=== PATIENT | female | born 1995 | race Caucasian/White ===

== ENCOUNTER 2022-10-01 16:42 | Inpatient (IN) | payer BC, SELFPAY ==
[2022-10-01 19:46] VITALS: BMI 29.9
[2022-10-01] MEDS: Lactated Ringers 1,000 ML 50 ML IV (20:05)
[2022-10-01 20:13] LABS: Absolute Lymphocyte Count 2.04 X10^3/uL (0.83-4.51); Absolute Neutrophil Count 9.3 X10^3/uL (2.0-7.7); Basophil# 0.05 X10^3/uL; Basophil% 0.4 % (0-1); Eosinophil# 0.27 X10^3/uL; Eosinophils% 2.2 % (0-5); Hematocrit 36.8 % (37-47); Hemoglobin 12.7 g/dL (12.0-15.0); Lymphocyte # 2.04 X10^3/ul (0.83-4.51); Lymphocyte % 16.3 % (19-41); Mean Corp Hgb Conc 34.5 g/dL (32-36); Mean Corpuscular Hgb 30.1 pg (27.0-32.0); Mean Corpuscular Volume 87.2 fL (81-99); Mean Platelet Vol. 10.8 fl (6.2-12.0); Monocyte# 0.72 X10^3/uL; Monocyte% 5.8 % (0-10); NRBC Flagged by Analyzer 0 % (0-5); Neutrophil # 9.29 X10^3/uL (2.7-7.7); Neutrophil % 74.3 % (47-70); Platelet Count 200 K/mm3 (150-450); RBC Distribution Width CV 12.7 % (11.6-14.6); RBC Distribution Width SD 39.8 fl (35.1-43.9); Red Blood Count 4.22 M/mm3 (4.2-5.4); White Blood Count 12.5 K/mm3 (4.4-11.0)
[2022-10-01 20:16] VITALS: BP 136/95; PULSE 94; PULSE 98; TEMP 37.7; O2SAT 97
[2022-10-01 21:06] LABS: AST(SGOT) 30 U/L (15-37); Alanine Aminotransfer ALT/SGPT 30 U/L (13-56); EST Glomerular Filtration Rate 90 mL/min (>60); Est Glom Filt Rate - Afr Amer 108 mL/min (>60); Estimated Creatinine Clearance 97.13 ml/min; Uric Acid 3.8 mg/dL (2.6-6.0)
[2022-10-01] MEDS: 0.9% Normal Saline Single 100 ML IV.SOLN. INTRA-UTER (21:25)
[2022-10-01] MEDS: NIFEdipine 30 MG Tablet PO (21:31)
--- NOTE | 2022-10-01 21:38 | PCM.HP.OB ---
HPI - General General Date of Admission: 10/01/22 Date of Service: 10/01/22 Chief Complaint: IOL HPI Narrative AMPARO CASTRO, is a 27 F at 39w0d who presents for scheduled IOL for cHTN. On Procardia at home for cHTN. She denies NASSAR, vision changes, upper abd pain, vb, lof. Good FM. She offers no complaints at this time. PFSH PFSH Medical History (Updated 10/01/22 @ 21:[address] Valentina Gutierrez, DO) Chronic hypertension Gestational HTN Home Medications aspirin 81 mg PO.IVFORM DAILY Check with primary doctor 10/01/22 [History Last Taken 09/30/22] nifedipine 30 mg tablet,extended release 24 hr 30 mg PO 1XD Check with primary doctor 10/01/22 [History Last Taken 09/30/22 22:00] vitamin with calcium no.72-iron 27 mg-folic acid 1 mg tablet ( Vitamins Plus Low Iron) tab Check with primary doctor 10/01/22 [History Last Taken Unknown] Allergy/AdvReac Type Severity Reaction Status Date / Time No Known Allergies Allergy Verified 10/01/22 20:31 Family History (Updated 10/01/22 @ 20:02 by Dayana Millard) Grandmother Breast cancer Father Hearing loss Social History Smoking Status: Never smoker History Elective abortions Hx Para 0 Spontaneous abortions Hx # Term Pregnancies Ectopic pregnancies Hx # Pregnancies Multiple births # of living children NST FHR Rate Baby A Baseline: 150 Variability:: Moderate Accelerations:: 15 x 15 Decelerations:: None NST Reactive:: Yes FHR Category:: Category I Uterine Activity:: No regular ctx's Vital Signs Vital Signs Vital Signs: 10/01/22 20:16 10/01/22 20:16 10/01/22 20:16 Temperature 99.9 F H Pulse Rate 94 Blood Pressure 136/95 H BP Systolic 136 BP Diastolic 95 Pulse Ox 10/01/22 20:16 10/01/22 20:16 10/01/22 20:16 Temperature 99.8 F H Pulse Rate 98 Blood Pressure BP Systolic BP Diastolic Pulse Ox 97 Weight Weight: 185 lb 3.013 oz Body Mass Index (BMI) 29.9 Physical Exam Const alert and no apparent distress General Appearance: comfortable HEENT normocephalic Resp normal respiratory effort GI soft to palpation and non-tender GI Narrative: Gravid Narrative: 1/t/h, posterior Extremity normal to inspection Labs Labs Labs: Blood Type Pending Antibody Screen Pending Hct 36.8 % (37-47) L Hgb 12.7 g/dL (12.0-15.0) Assessment & Plan (1) 39 weeks gestation of : PLAN: Admit for routine intrapartum care. Cvx 1/t/h, posterior. Intracervical delcid placed in usual fashion and filled with 40 cc saline. Cytotec 25 mcg given. Once delcid out will start pit and PCN for GBS+. Plans for epidural for pain control. Bedside TAUS confirm vertex presentation. Cont Procardia. Pre e labs sent on admission. No symptoms of pre e. Pelvis adequate and expected EFW < 4500 g. Anticipate vaginal delivery. (2) Encounter for planned induction of labor: (3) Chronic hypertension:
[2022-10-01] MEDS: miSOPROStol 25 MCG TABLET PO (22:04)
[2022-10-01 22:12] LABS: Protein, Urine (Random) 6.9 mg/dL (<11.9); Protein:Creat Ratio 107 mg/g CRE (0-200)
[2022-10-01 22:59] VITALS: BP 142/87; PULSE 80; TEMP 36.9
[2022-10-02] VITALS (63 sets, daily range): BP systolic 106–149; BP diastolic 64–107; PULSE 75–136; TEMP 36.2–38.1; O2SAT 95–100
[2022-10-02] MEDS: Oxytocin 15 Units/NS 250ml 15 UNITS/250 ML IV.SOLN 2 UNITS IV (02:10)
--- NOTE | 2022-10-02 05:21 | PCM.PN.BLA ---
Progress Note At bedside to check on pt. She is doing well. Getting some rest with ctx's. Assessment & Plan Assessment/Plan (1) 39 weeks gestation of : PLAN: Per RN after delcid was out cvx 350/-3, posterior. At bedside to recheck and cvx posterior - unable to check cvx given posterior position and pt discomfort with exam. Unable to perform AROM at this time given position of cervix. Cont pit gtt. Category 1 tracing. (2) Encounter for planned induction of labor: (3) Chronic hypertension:
[2022-10-02] MEDS: Lactated Ringers 1,000 ML 200 ML IV ×3 (06:00→18:59)
[2022-10-02] MEDS: LACTATED RINGERS 500 ML 999 ML IV ×2 (06:02→16:05)
[2022-10-02] MEDS: Penicillin G 3,000,000 Units 50 ML 100 UNITS IV ×2 (06:30→19:40)
[2022-10-02] MEDS: fentaNYL-bupivacaine (epidural) 100 ML BAG EPIDURAL ×4 (07:37→21:10)
--- NOTE | 2022-10-02 08:20 | PCM.PN.BLA ---
Progress Note Patient seen at bedside. Comfortable with epidural. Assessment & Plan Assessment/Plan (1) Chronic hypertension: (2) Encounter for planned induction of labor: (3) 39 weeks gestation of : PLAN: Plan Cat. 1 tracing, NST reactive GBS +, PCN IV x 3 doses CE- 3/50/-3 AROM for moderate amount of clear fluid IUPC placed without difficulty Continue present plan of care Anticipate Dr. Jiang updated and is collaborating physician
[2022-10-02] MEDS: Penicillin G 3,000,000 Units 50 ML 50 UNITS IV ×2 (10:35→14:32)
--- NOTE | 2022-10-02 16:44 | PCM.PN.BLA ---
Progress Note Patient seen at bedside. Remains comfortable with epidural. Denies any pain. Assessment & Plan Assessment/Plan (1) Chronic hypertension: (2) Encounter for planned induction of labor: (3) 39 weeks gestation of : PLAN: Plan Cat 2 tracing with occasional late, and early decelerations. Moderate variability- overall reassuring CE- 5/85/-1- cervix thinner and more stretchy Blood pressures within normal ranges Continue present plan of care Anticipate Dr. Apolinar park
[2022-10-02] MEDS: Ondansetron 4 MG/2 ML Vial IV (20:13)
[2022-10-02] MEDS: Oxytocin 10 UNITS/ML Vial IM (21:46)
--- NOTE | 2022-10-02 22:04 | EX.PCM.OBRPT ---
Assessment & Plan (1) Chronic hypertension: (2) (spontaneous vaginal delivery): Vaginal Delivery Maternal Presentation Maternal Presentation: Medically Indicated Induction Type of Induction: Pitocin, Reym Bulb and Amniotomy Medical Reason for Induction: - (Chronic Hypertension) Operative Information Date of Procedure: 10/02/22 Pre-Operative Diagnosis: Term gestation, Chronic hypertension, induction of labor Post-Operative Diagnosis: , live viable male Surgery / Procedure Performed: Spontaneous Vaginal Delivery Type of Anesthesia: Epidural Drain: Remy to straight drain Estimated Blood Loss: 300 Time of Delivery: 21:39 Findings Description of Procedure: Provided bedside support to patient during pushing. head delivered in MORA position with hand next to face. Anterior shoulder delivered followed by remainder of infant body with no traction. Vigorous male placed on maternal abdomen and attended to by nursing staff. Pitocin IM x 1 dose given for active management of the third stage. 3 vessel cord clamped and cut by patient after delay, and placed immediately skin to skin. Cord blood collected and sent. Placenta delivered spontaneously and intact. Vagina and perineum intact. Bilateral labial lacerations not actively bleeding and not repaired. Hemostasis obtained. Fundus firm and 2 below U. EBL 300 cc . APGARS 9/9. Infant and patient bonding well at this time. Planning on bottle feeding. Dr. Jiang notified of delivery. Presentation: Vertex (Hand next to face) Amniotic Membrane Rupture Type: Artificial Time of Membrane Rupture: 811 Amniotic Fluid Description: Clear Placental Delivery Description: Spontaneous Placenta Disposition: [facility] Cord Vessel Description: 3 Vessels Cord Entanglement: None A Gender: Male (1 minute): 9 (5 minute): 9 Delayed Cord Clamping: Yes
[2022-10-02] MEDS: 0.9% Saline Lock 10 ML Syringe IV (23:52)
[2022-10-02] MEDS: NIFEdipine 30 MG Tablet PO (23:54)
[2022-10-03] VITALS (7 sets, daily range): BP systolic 119–141; BP diastolic 71–88; PULSE 80–99; RESP 16–18; TEMP 36.4–37.4; O2SAT 96
[2022-10-03] MEDS: Naproxen 500 MG Tablet PO (04:48)
--- NOTE | 2022-10-03 11:18 | PCM.PN.OB ---
Subjective Subjective Patient seen at bedside. Feeling good. Denies any pain. Ambulating and voiding without difficulty. Bottle feeding. Denies any headache, vision changes, SOB or CP. Objective Data Objective Data Vital Signs: Vital Signs Temp Pulse Resp BP Pulse Ox O2 Del Method 98.0 F 90 18 127/71 H 96 Room Air 10/03/22 07:42 10/03/22 07:42 10/03/22 07:42 10/03/22 07:42 10/03/22 07:42 10/03/22 07:42 Oxygen Delivery Method Room Air Weight: 185 lb 3.013 oz Body Mass Index (BMI) 29.9 Intake & Output: Intake and Output for Last 24 Hours 10/01/22 10/02/22 10/03/22 23:59 23:59 23:59 Intake Total 6098.40 / 6098.40 Output Total 2800 / 2800 1500 / 1500 Balance 3298.40 / 3298.40 -1500 / -1500 Lab / Micro Data Result Diagrams: 10/01/22 20:05 10/01/22 20:05 ROS Eyes Eyes: Denies blurry vision, change in vision or spots in vision ENT HEENT: Denies dizziness or headache(s) Cardiovascular Cardiovascular: Denies abdominal pain, chest pain or dyspnea Respiratory/Chest Respiratory/Chest: Denies cough, dyspnea, shortness of breath at rest or shortness of breath with exertion Gastrointestinal Gastrointestinal: Denies abdominal pain, diarrhea or vomiting Genitourinary Genitourinary: Denies change in urinary stream, difficulty urinating or dysuria Musculoskeletal Musculoskeletal: Reports none Integumentary Integumentary: Denies rash Neurologic Neurologic: Denies dizziness, headache(s), memory loss or weakness Physical Exam Const alert and no apparent distress General Appearance: cooperative and comfortable Exam Limitations: no limitations HEENT normocephalic Eyes General Eye: normal appearance of both eyes Neck full ROM General: normal visual inspection Chest Chest: symmetrical chest wall rise Resp normal respiratory effort and normal air movement Effort and Inspection: symmetric chest movement Auscultation: clear to auscultation bilaterally Cardio regular rate and regular rhythm GI normal to inspection, nondistended, normoactive bowel sounds Back/Spine normal ROM Extremity full ROM and no calf tenderness General Extremity: normal exam except as noted Skin no rashes or lesions noted Neuro CN's II-XII intact bilaterally Psych mental status grossly normal Assessment & Plan (1) (spontaneous vaginal delivery): (2) Chronic hypertension: PLAN: Plan PPD 1 Routine care Pain control Continue Procardia XL 30 mg Daily BP within normal range Anticipate discharge home tomorrow
[2022-10-03] MEDS: NIFEdipine 30 MG Tablet PO (22:29)
[2022-10-04 01:30] VITALS: BP 125/88; PULSE 71; RESP 17; TEMP 36.4; O2SAT 97
[2022-10-04 01:49] VITALS: BP 142/91; PULSE 102; RESP 18; TEMP 36.5
--- NOTE | 2022-10-04 01:57 | NURSING ---
Pt called nursing staff into room with c/o i just got really cold all of a sudden Pt resting in bed, wearing a hooded sweat shirt, calabrese up over head. pt with chills. vitals obtained. afebrile at this time. pt denies pain/abd tenderness. warm blankets provided. plan to recheck vitals in 1 hour.
[2022-10-04 03:03] VITALS: BP 129/82; PULSE 91; RESP 16; TEMP 36.9
--- NOTE | 2022-10-04 07:41 | PCM.PN.OB ---
Subjective Subjective Patient seen at bedside. Feeling good. Denies any pain. Ambulating and voiding without difficulty. Denies any headache, vision changes, RUQ pain, CP or SOB. Lochia decreasing. Bottle feeding. Desires discharge home today. Objective Data Objective Data Vital Signs: Vital Signs Temp Pulse Resp BP Pulse Ox O2 Del Method 98.5 F 91 16 129/82 H 97 Room Air 10/04/22 03:03 10/04/22 03:03 10/04/22 03:03 10/04/22 03:03 10/04/22 01:30 10/04/22 01:30 Oxygen Delivery Method Room Air Weight: 185 lb 3.013 oz Body Mass Index (BMI) 29.9 Intake & Output: Intake and Output for Last 24 Hours 10/02/22 10/03/22 10/04/22 23:59 23:59 23:59 Intake Total 6098.40 / 6098.40 Output Total 2800 / 2800 2300 / 2300 Balance 3298.40 / 3298.40 -2300 / -2300 Lab / Micro Data Result Diagrams: 10/01/22 20:05 10/01/22 20:05 ROS Eyes Eyes: Denies blurry vision, change in vision or spots in vision ENT HEENT: Denies dizziness or headache(s) Cardiovascular Cardiovascular: Denies abdominal pain, chest pain or dyspnea Respiratory/Chest Respiratory/Chest: Denies cough, dyspnea, shortness of breath at rest or shortness of breath with exertion Gastrointestinal Gastrointestinal: Denies abdominal pain, diarrhea or vomiting Genitourinary Genitourinary: Denies change in urinary stream, difficulty urinating or dysuria Musculoskeletal Musculoskeletal: Reports none Integumentary Integumentary: Denies rash Neurologic Neurologic: Denies dizziness, headache(s), memory loss or weakness Physical Exam Const alert and no apparent distress General Appearance: cooperative and comfortable Exam Limitations: no limitations HEENT normocephalic Eyes General Eye: normal appearance of both eyes Neck full ROM General: normal visual inspection Chest Chest: symmetrical chest wall rise Resp normal respiratory effort and normal air movement Effort and Inspection: symmetric chest movement Auscultation: clear to auscultation bilaterally Cardio regular rate and regular rhythm GI normal to inspection, nondistended, normoactive bowel sounds Back/Spine normal ROM Extremity full ROM and no calf tenderness General Extremity: normal exam except as noted Skin no rashes or lesions noted Neuro CN's II-XII intact bilaterally Psych mental status grossly normal Assessment & Plan (1) Chronic hypertension: (2) (spontaneous vaginal delivery): PLAN: Plan PPD 1 Routine care Pain control Continue Procardia XL 30 mg PO daily Follow up with [employer] D/C home with follow up in office this week
--- NOTE | 2022-10-04 07:46 | DCINST_ITS ---
Discharge Instructions Diet Discharge Diet: No restrictions Activity Discharge Activity: Return to Normal Activity, May Shower and May Take a Tub Bath May resume sexual activity in: 4-6 weeks Weight Bearing Status: Weight bearing as tolerated Dressing / Incision Call your doctor if you observe: Inability to urinate, Using more than 1 pad per hour, Shortness of breath, Dizziness, Swelling in the ankles, Chest pain, Calf discomfort and Uncontrolled pain Follow Up Care Please Follow Up With: Daniela Ahumada CNM When: Within 2 weeks then again at 6 weeks Test Results: Test results from this visit will be discussed in further detail at your follow- up appointment, if applicable. Discharge Plan Admission Admit Date/Time: 10/01/22 16:42 Primary Reason for Your Visit: Labor and Delivery Attending Provider: Daniela Ahumada Primary Care Provider: Care Physician,Tiffanie Primary Discharge Orders/Prescriptions Prescriptions: Continued nifedipine 30 mg tablet extended release 24hr 30 mg PO 1XD Vitamin Plus Low Iron 27 mg iron- 1 mg tablet Discontinued aspirin 81 mg PO.IVFORM DAILY Referrals / Follow Up: Care Physician,Tiffanie Primary [Primary Care Provider] - Disposition Disposition (needs filled in before D/C Order can be placed): Home, Self Care
[2022-10-04 08:09] VITALS: BP 110/65; BP 110/85; PULSE 91; RESP 18; TEMP 36.4; O2SAT 98
== END 2022-10-04 08:13 | disposition home or self-care (01) | DRG 806 ==
PROVIDERS: Obstetrics & Gynecology; Admitting Provider Advanced Practice Midwife; Visit Provider Advanced Practice Midwife
DX: O76 Abnormality in fetal heart rate and rhythm complicating labor and delivery (principal); Z37.0 Single live birth; O10.02 Pre-existing essential hypertension complicating childbirth; O99.824 Streptococcus B carrier state complicating childbirth; O70.0 First degree perineal laceration during delivery; Z3A.39 39 weeks gestation of pregnancy; Z79.82 Long term (current) use of aspirin; Z79.899 Other long term (current) drug therapy
CPT/HCPCS: 59025; 59050; 82565; 82570; 84156; 84450; 84460; 84550; 85025; 86850; 86900; 86901; 99221; J7120; A4216; G0378; J2405

== ENCOUNTER 2022-12-24 10:03 | Day surgery (SDC) | payer BC, SELFPAY ==
[2022-12-21 10:56] LABS: Hematocrit 43.7 % (37-47); Hemoglobin 14.3 g/dL (12.0-15.0); Mean Corp Hgb Conc 32.7 g/dL (32-36); Mean Corpuscular Hgb 28.7 pg (27.0-32.0); Mean Corpuscular Volume 87.8 fL (81-99); Mean Platelet Vol. 10.7 fl (6.2-12.0); Platelet Count 252 K/mm3 (150-450); RBC Distribution Width CV 11.8 % (11.6-14.6); RBC Distribution Width SD 37.6 fl (35.1-43.9); Red Blood Count 4.98 M/mm3 (4.2-5.4); White Blood Count 5.2 K/mm3 (4.4-11.0)
--- NOTE | 2022-12-22 17:08 | PCM.HP.BLA ---
History and Physical Date of Admission: 12/24/22 Pre-Op History and Physical ? HPI: The patient is a 27 year old female presenting for pre-operative visit. She is scheduled for laparoscopic bilateral salpingectomy , for desires sterilization on . Procedure discussed along with risks, benefits and complications. Other alternatives discussed for management. Consent form signed? Yes. ? ? PAST MEDICAL HISTORY PAST MEDICAL HISTORY Diagnosis Date ? Essential hypertension ? ? fracture 2006 ? right arm-radius and ulna ? Infertility, female ? ? attempted 2 years, infertility work up with [facility] ? ? PAST SURGICAL HISTORY PAST SURGICAL HISTORY Procedure Laterality Date ? PAST SURGICAL HISTORY OF ? ? ? wisdom teeth ? PAST SURGICAL HISTORY OF Right ? ? radius/ulna ? TONSILLECTOMY HX ? CURRENT MEDICATIONS Current Outpatient Medications Medication Sig Dispense Refill ? NIFEdipine ER (PROCARDIA XL) 30 mg 24 hr tablet Take 1 tablet by mouth once daily. 30 tablet 5 ? aspirin 81 mg cap Take by mouth. ? ? ? prental multivitamin 27 mg iron- 800 mcg tablet Take 1 tablet by mouth once daily. 30 tablet 4 ? No current facility-administered medications for this visit. ? ? ALLERGIES: Patient has no known allergies. ? PERSONAL HISTORY: SOCIAL HISTORY Social History ? Tobacco Use ? Smoking status: Never ? Smokeless tobacco: Never Vaping Use ? Vaping Use: Never used Substance Use Topics ? Alcohol use: Not Currently ? Drug use: Never ? FAMILY HISTORY: FAMILY HISTORY FAMILY HISTORY Problem Relation Age of Onset ? Hypertension Mother ? ? Asthma Mother ? ? No Known Problems Father ? ? other (penicillin allergy) Sister ? ? other (other) Brother ? ? Seizures Brother ? ? Alcohol abuse Brother ? ? other (lung issues) Maternal Grandmother ? ? Stroke Maternal Grandfather ? ? No Known Problems Paternal Grandmother ? ? No Known Problems Paternal Grandfather ? ? ? REVIEW OF SYMPTOMS: negative except as noted above PHYSICAL EXAMINATION: ? VITALS: Blood pressure 132/72, weight 159 lb (72.1 kg), last menstrual period 11/29/2022, not currently . ? GENERAL: The patient is well nourished, well hydrated in no acute distress. , The patient is oriented to time, place, and person. NECK: full range of motion LUNGS: Clear to auscultation bilaterally. no wheezes, rhonchi or rales HEART: Regular rate and rhythm, Normal heart sounds, and No murmurs or gallops ? IMPRESSION: 27yo here for sterilization consultation/pre op ? PLAN: laparoscopic bilateral salpingectomy ? Pt has been counseled on risks/benefits and alternatives of surgery including but not limited to anesthesia, bleeding, infection, injury to pelvic structures including bowel, bladder, ureters and vessels. Pt wishes to proceed with surgery at this time. Risk of regret reviewed ? Pre op and post op instructions reviewed ? ? I have reviewed and updated past medical and surgical history, medications and allergies Katarina Mariee MD Office Visit on 12/10/2022 Office Visit on 12/10/2022 Note viewed by patient
[2022-12-24 10:30] VITALS: BP 129/92; PULSE 71; RESP 16; TEMP 36.6; O2SAT 100; BMI 25.9
[2022-12-24 10:41] LABS: Internal QC Validated? YES +Cl - CLEAR BKGD
[2022-12-24 10:44] LABS: Pregnancy, Urine Negative Negative
[2022-12-24] MEDS: Lactated Ringers 1,000 ML 15 ML IV (10:49)
--- NOTE | 2022-12-24 11:50 | DCINST_ITS ---
Discharge Instructions Procedure Other Diet Discharge Diet: No restrictions Activity May resume sexual activity in: 2 weeks Lifting Restrictions: 20-25 lbs Dressing / Incision Call your doctor if your incision/area has: Continuous Slow Oozing, Sudden Increased Bleeding, Increased Pain/ Swelling, Increased Redness, Foul Smelling Discharge and Swelling at the incision site Call your doctor if you observe: Fever of 101 or Higher, Inability to urinate, Inability to have a bowel movement, Using more than 1 pad per hour and Uncontrolled pain Additional Dressing/Incision Instructions:: You have skin glue over your incision sites, do not pick off. You may shower and let the soap and water run over the incision sites and dab dry. Follow Up Care Please Follow Up With: Katarina Martinez MD When: 1-2 weeks post OP if you need an appointment please call [phone] Test Results: Test results from this visit will be discussed in further detail at your follow- up appointment, if applicable. Discharge Plan Admission Attending Provider: Katarina Martinez Primary Care Provider: Care Physician,Tiffanie Primary Discharge Orders/Prescriptions Prescriptions: No Action nifedipine 30 mg tablet extended release 24hr 30 mg PO DAILY Referrals / Follow Up: Care Physician,Tiffanie Primary [Primary Care Provider] - Disposition Disposition (needs filled in before D/C Order can be placed): Home, Self Care
--- NOTE | 2022-12-24 11:55 | FALS_PTH ---
PATIENT: AMPARO CASTRO LOC: [facility] U#:[id number] AGE/SX: 27/F ROOM: RE12/24/[address]: Dr. Katarina Martinez, MDDOB: 1995 BED: DIS: 12/24/2022 SPEC #: [id number] RECD: 12/24/22 14:18 STATUS: PATRICIA EDWIN #: [id number] MAXIME: 12/24/22 11:[address]: Katarina Martinez DEPT: SURGICAL PATHOLOGY RECD BY: Roya Jacques ENTERED: 12/25/22 09:30 SP TYPE: FALL TUBES OTHR DR: Tiffanie Primary Care Phys Tissues: Fallopian tube Procedures: Surgery Specimen Level II HEADER OPERATION: Laparoscopic salpingectomy PRE-OP DIAGNOSIS: Sterilization TISSUE SUBMITTED: Bilateral fallopian tubes MICROSCOPIC DIAGNOSIS Bilateral fallopian tubes, salpingectomy: Bilateral fallopian tubes, no pathologic diagnosis. SJ:kristine 12/28/2022 MICROSCOPIC DESCRIPTION Slides are reviewed. GROSS DESCRIPTION Received in fixative is one container labeled with the patient's name and designated bilateral fallopian tubes. The specimen consists of bilateral fallopian tubes including fimbrial ends each measuring 6.5 cm in length and 0.6 cm in diameter. The fallopian tubes are not identified as right or left. Sections reveal unremarkable cut surfaces. Services Program Manager sections are submitted in two cassettes with each cassette containing one fallopian tube. / AYAAN:kristine 12/25/2022 TC:4 CPT: 31235 x2
[2022-12-24] MEDS: Bupivacaine Mpf 0.5% 30 ML VIAL (12:33)
--- NOTE | 2022-12-24 12:38 | PCM.OPRPT ---
Report of Operation Date of Procedure: 12/24/22 Pre-Operative Diagnosis: desires sterilization Post-Operative Diagnosis: same Surgery/Procedure Performed:: Laparoscopic bilateral salpingectomy Description of Surgical Findings:: normal tubes and ovaries bilaterally Surgeon: Katarina Martinez wound care specialist: None (tyree baig ) Type of Anesthesia: General and Local Special Medications: 0.5% marcaine Specimen's removed: bilateral fallopian tubes Estimated Blood Loss (mL): 5cc Fluids Replaced: 700 Description of Procedure: After informed consent was obtained patient was taken to the operating room she was placed in supine position she was given anesthesia. She was then placed in the [facility] stirrups and she was prepped and draped in normal sterile fashion. Bladder was drained prior to the start of procedure. At this time attention was turned to the vaginal portion where weighted speculum placed at posterior fornix vagina single-tooth tenaculum was used to gently grasp the internal the cervix. uterus was gently sounded to approximately 8 cm. Uterine manipulator was placed without difficulty. Legs then placed in parallel with the abdomen the tenaculum and the weighted speculum were removed. 2 towel clamps were placed at level of umbilicus. Marcaine was injected infraumbilical and a small incision was made. The 5 mm trocar was placed under direct visualization. CO2 gas was used to insufflate the intra-abdominal cavity. Upon inspection no gross abnormalities appreciated- the uterus tubes and ovaries appeared to be normal. At this time then the LLQ and RLQ ports were placed First Marcaine was injected and small incision was made a knife and the 5 mm trocars were placed. At this time then tubes were traced back to the fimbriated ends. enseal was used to coagulate and ligate along mesosalpinx bilaterally until tubes removed completely. Good hemostasis was appreciated. At this time procedure was deemed complete successful. The gas was desufflated on from the intra-abdominal cavity. The trochars were removed. Skin was closed using 4-0 Monocryl in a subcutaneous fashion. Dermabond glue was placed. Instrument lap and needle counts were correct ?2. The uterine manipulator was removed. Vaginal sweep was performed it was negative. There were no complications anticipated normal postoperative course for this patient. Grafts/Implants Used: none Procedure Start Time: 12:13 Procedure Stop Time: 12:37 Complications none Admit VTE Documentation VTE Present on Admission: Yes VTE Mechan Device Prophylaxis: SCD's VTE Pharm Prophylaxis ordered?: No Reason prophylaxis not ordered:: Procedure Not Indicated
[2022-12-24 13:00] VITALS: BP 118/79; BP 129/92; PULSE 74; RESP 18; TEMP 36.9; O2SAT 100
[2022-12-24 13:15] VITALS: BP 119/85; BP 129/92; PULSE 64; RESP 18; O2SAT 100
[2022-12-24 13:23] VITALS: BP 122/83; BP 129/92; PULSE 76; RESP 18; TEMP 36.9; O2SAT 100
[2022-12-24 14:20] VITALS: BP 110/72; BP 129/92; PULSE 72; RESP 16; O2SAT 98
== END 2022-12-24 14:48 | disposition home or self-care (01) ==
LOC: SDC 10:05 → AC 10:06
PROVIDERS: Referring Provider Obstetrics & Gynecology; Visit Provider Obstetrics & Gynecology
PROC: (CPT 58661; principal; 2022-12-24 11:40)
DX: Z30.2 Encounter for sterilization (principal); I10 Essential (primary) hypertension
CPT/HCPCS: 58661; 00840; 36415; 81025; 85027; 88302; J7120; C1760; J2405